=== PATIENT | female | born 1990 | race American Indian/Alaskan Native ===

== ENCOUNTER 2017-08-23 01:30 | Emergency (ER) | payer OTHER ==
[2017-08-23 01:57] VITALS: BP 121/67
[2017-08-23] MEDS ORDERED: MOTRIN PO ONE (01:57)
--- NOTE | 2017-08-23 03:02 | Emergency Department Report ---
ED Laceration HPI - HPI Chief Complaint: Laceration/Recheck/Suture Stated Complaint: RT LEG INJURY Time Seen by Provider: 08/23/17 02:14 Occurred When: Today Location: Lower Extremity Severity: mild Tetanus Status: Up to Date Laceration Symptoms: Yes Pain, No Foreign Body Sensation, No Numbness, No Weakness ED Review of Systems ROS: Stated complaint: RT LEG INJURY Other details as noted in HPI Constitutional: denies: chills, fever Eyes: denies: eye pain, eye discharge, vision change ENT: denies: ear pain, throat pain Respiratory: denies: cough, shortness of breath, wheezing Cardiovascular: denies: chest pain, palpitations Endocrine: no symptoms reported Gastrointestinal: denies: abdominal pain, nausea, diarrhea Genitourinary: denies: urgency, dysuria, discharge Musculoskeletal: denies: back pain, joint swelling, arthralgia Skin: other (lacerating right calf ) Neurological: denies: headache, weakness, paresthesias Psychiatric: denies: anxiety, depression Hematological/Lymphatic: denies: easy bleeding, easy bruising ED Past Medical Hx - Past Medical History Previous Medical History?: No Hx Psychiatric Treatment: Yes (Panic Attack. Anxiety) - Surgical History Past Surgical History?: Yes Additional Surgical History: Bilateral Fallopian Tube Surgery. - Social History Smoking Status: Never Smoker Substance Use Type: None - Medications Home Medications: Home Medications Medication Instructions Recorded Confirmed Last Taken Type Cephalexin [Keflex] 500 mg PO TID #30 capsule 08/23/17 Unknown Rx traMADol [Ultram] 50 mg PO Q6HR PRN #10 tablet 08/23/17 Unknown Rx Laceration Physical Exam - Exam General: Vital signs noted. No distress. Alert and acting appropriately. Laceration Location: Lower Extremity Laceration Exam: No Foreign Body, No Exposed Tendon, Vessel, or Nerve, No Tendon Injury, No Normal Distal CMS ED Course Vital Signs 08/23/17 01:52 Temperature 98.1 F Pulse Rate 100 H Respiratory 20 Rate Blood Pressure 121/67 O2 Sat by Pulse 99 Oximetry - Laceration /Wound Repair Right Posterior Lateral Leg Wound Location: lower extremity Wound Length (cm): 1 (right posterior lateral calf less than 1 1/2 cm ) Wound's Depth, Shape: into muscle Wound Explored: clean Irrigated w/ Saline (ccs): 60 Betadine Prep?: Yes Anesthesia: 1% Lidocaine Volume Anesthetic (ccs): 3 Wound Debrided: minimal Wound Repaired With: sutures Suture Size/Type: 4:0, nylon Number of Sutures: 7 Layer Closure?: No Sterile Dressing Applied?: Yes Progress: right posterior latera calf laceration versus car door, approx 1 1/2 cm bleeding controlled rom intact no tendon or nerve involvment woud cleaned with betabdiine solution anesthesia with 1% lidocaine, wound irrigated with 60 cc sterile saline, sutures for wound repair 4.0 nylon x 7 sutures interupted all bleeding in controlled sterile dressing applied pt given wound care instructions , verbalized agreement and understanding of same pt tolerated procedure with minimal distress. ED Medical Decision Making - Medical Decision Making pt presented for right posterior lateral calf laceration wound closed via suture , see procedure note, there was no nerve or tendon involvment, tetanus up to date. pt given wound care instructions pt will follow up with pcp in 2-3 days for wound check and 7 day for suture removal pt verbalized agreement and understanding of discharge plan. pt for dc to home in stable condition pt with nad at this time ambulatory gait steady with nad . Critical care attestation.: If time is entered above; I have spent that time in minutes in the direct care of this critically ill patient, excluding procedure time. ED Disposition Clinical Impression: Laceration of right lower leg Qualifiers: Encounter type: initial encounter Qualified Code(s): S81.811A - Laceration without foreign body, right lower leg, initial encounter Disposition: DC-01 TO HOME OR SELFCARE Is pt being admited?: No Does the pt Need Aspirin: No Condition: Good Instructions: Suture Care (ED), Laceration (ED) Prescriptions: Cephalexin [Keflex] 500 mg PO TID #30 capsule traMADol [Ultram] 50 mg PO Q6HR PRN #10 tablet PRN Reason: Pain Referrals: OT[facility] REAL [Referring] - 3-5 Days Forms: Work/School Release Form(ED) Time of Disposition: 03:08
== END 2017-08-23 03:16 | disposition home or self-care (01) ==
LOC: ED 01:30
DX: S81.811A Laceration without foreign body, right lower leg, initial encounter (principal); F41.0 Panic disorder [episodic paroxysmal anxiety]; W23.0XXA Caught, crushed, jammed, or pinched between moving objects, initial encounter; Y93.89 Activity, other specified; Y92.89 Other specified places as the place of occurrence of the external cause; Y99.8 Other external cause status
CPT/HCPCS: 99282